=== PATIENT | female | born 2000 | race African-American/Black ===

== ENCOUNTER 2024-10-11 01:00 | Emergency (ER) | payer OTHER ==
[~2024-10-11] VITALS: Ht 165.1 cm; Wt 63.0 kg
[2024-10-11 01:02] VITALS: O2SAT 99
[2024-10-11] MEDS: ACETAMINOPHEN 325MG TABLET PO ONE (02:33)
[2024-10-11 04:23] VITALS: BP 104/57; PULSE 70; RESP 18; TEMP 36.9; O2SAT 100
== END 2024-10-11 04:31 | disposition home or self-care (01) ==
LOC: ER 01:00
DX: R53.1 Weakness (principal)
CPT/HCPCS: 99282